=== PATIENT | female | born 1940 | race Caucasian/White ===

== ENCOUNTER → 2016-07-06 | Outpatient (CLI) | payer MEDICARE | LOC: RAD 09:00 | PROVIDERS: ATTEND Family Medicine | DX: R10.2 Pelvic and perineal pain (principal) | CPT/HCPCS: 76856 ==

== ENCOUNTER → 2016-07-22 | Outpatient (CLI) | payer MEDICARE ==
[2016-07-22 12:11] VITALS: BP 114/62
== END ==
LOC: MHUC 10:38
PROVIDERS: ATTEND Physician Assistant
DX: F41.9 Anxiety disorder, unspecified (principal); F32.9 Major depressive disorder, single episode, unspecified
CPT/HCPCS: 99214

== ENCOUNTER → 2016-07-22 | Outpatient (CLI) | payer MEDICARE ==
[2016-07-22 11:28] LABS: BASOPHILS % (AUTO) 1 % (0-2); EOSINOPHILS # (AUTO) 0.1 10^3uL; EOSINOPHILS % (AUTO) 1 % (0-4); LYMPHOCYTES # (AUTO) 1.8 X10^3; MEAN CORPUSCULAR HEMOGLOBIN 31.6 PG (26.0-34.0); MEAN CORPUSCULAR HGB CONC 35.6 g/dL (31.0-37.0); MEAN CORPUSCULAR VOLUME 89 FL (80-100); MEAN PLATELET VOLUME 9.7 FL (6.0-9.5); MONOCYTES # (AUTO) 1.2 X10^3; MONOCYTES % (AUTO) 11 % (3-11); NEUTROPHILS # (AUTO) 7.1 X10^3; NEUTROPHILS % (AUTO) 70 % (51-67); PLATELET COUNT 266 10^3uL (150-450); WHITE BLOOD COUNT 10.23 10^3uL (4.0-11.0)
[2016-07-22 11:38] LABS: ALBUMIN 4.7 g/dL (3.4-5.0); ANION GAP 15.6 MEQ/L (3-15); CALCULATED IONIZED CALCIUM 4.5 mg/dL (3.8-4.6); TOTAL PROTEIN 7.7 g/dL (6.4-8.5)
== END ==
LOC: LAB 11:13
PROVIDERS: ATTEND Physician Assistant
DX: R53.81 Other malaise (principal)
CPT/HCPCS: 36415; 80053; 85025; 87486; 87581; 87633; 87798

== ENCOUNTER 2016-08-25 13:00 | Outpatient (RCR) | payer MEDICARE ==
--- NOTE | 2016-08-09 13:10 | PT/OT/ST INITIAL EVALUATION ---
Department of Health and Human Services Form Approved [facility] Care Financing Administration OMB No. [id number] PLAN OF CARE/ASSESSMENT FOR OUTPATIENT REHABILITATION (Complete for Initial Claims Only) 1. PATIENT'S NAME Jessica Keating 2. ACC # [id number] 3. [facility] [id number] 4. PROVIDER NO. [id number] 5. TYPE: PT 6. PRIOR HOSPITALIZATION NA 7. PRIMARY DX Trapezius myalgias and thoracic paraspinal myalgias 8. SECONDARY DX NA 9. ONSET DATE Several years ago 10. REFERRAL DATE 07/25/2016 11. SOC. DATE 07/31/2016 12. TIME OF EVAL 9:36 12. REFERRING PHYSICIAN GREGORY Miranda with Kobi Gibson MD 13. CHARGES/UNITS Evaluation 01109 Exercise 33748, 1 unit Manual therapy 83547, 1 unit 14. G CODES [id number] Goal [id number] 15. PRIOR LEVEL OF FUNCTION; PERTINENT HISTORY (Prior therapy results, reason for referral.) S: Prior to the evaluation the patient consented to today's evaluation and treatment. The patient is a 76-year-old female referred by Melva Steven with her primary care physician being Dr. Miguel Angel Gibson to address trapezius and thoracic paraspinal myalgias. The patient notes a several year history of mid back and neck pain and reports a recent exacerbation a few weeks ago secondary to an increase in personal stressors. The patient also notes low back pain, however, at this time the upper trapezius and mid back pain are the greatest. Pain level: The patient's current pain level is 8/10 when the pain is flared up. It is described as not constant, but variable in intensity. She denies any numbness or tingling. Aggravating factors: The pain is aggravated by leaning forward, stress, and cold temperatures. Relieving factors: The pain is relieved by going to the chiropractor and utilization of taping strategies. 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 She is active around her home when not limited by pain. The patient is retired, but does like to stay active per her report. Current level of function: The patient is still able to complete daily tasks, but does have increased pain with these activities. She also has been experiencing an increase in dizziness. The patient also finds it uncomfortable to stay in one position for long periods of time secondary to pain. Therapy History: The patient has not had any recent physical therapy for this issue. Diagnostic testing: No recent diagnostic imaging has been performed. Past medical history: The patient has a history of arthritis, hypertension, chronic kidney disease and she is now on dialysis at this time, as well as bilateral rotator cuff repair, right knee total arthroplasty, cold intolerance and depression, which she relates to stress. The patient has undergone an EKG, which showed some possible dysfunction related to her heart and will see a manager car on 08/08/2016 for this issue. The patient also notes having an infection in one of her dental implants and will be undergoing surgery on 08/14/2016 to address this issue. 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 Personal health rating: Good. Activity level: The patient did not rate her activity level at this time. Patient's Goal: The patient's goal is to get better. 16. INITIAL ASSESSMENT/SAFETY PRECAUTIONS/MEDICAL COMPLICATIONS (Level of function at start of care. Be specific, use objective measures, list problems.) O: APPEARANCE AND OBSERVATION: Observation of the patent's posture reveals forward head positioning, bilateral scapular winging and increased cervical lordosis. She also demonstrates rounded shoulder positioning. PALPATION: The patient has tenderness and tightness to palpation at the cervical, thoracic, and lumbar paraspinals. She also has decreased movement with assessment of flexion palpating the spinous processes in the thoracic spine. SPECIAL TESTS: The patient scored a 9/50 on the modified Oswestry pain index. RANGE OF MOTION/FLEXIBILITY: The patient has poor segmentation in the thoracic and lumbar spine with trunk flexion. Cervical flexion is normal; however, she feels a pulling sensation. Right cervical rotation is limited 25% in comparison to the left. Bilateral cervical side bending is limited by 25% with shoulder hiking noted with completion of this task. The patient has a 50% limitation in lumbar side bending. STRENGTH: Right shoulder flexion 4/5, left 4/5. Shoulder abduction 3+/5 bilaterally. Shoulder internal and external rotation 4+/5 bilaterally. Hip flexion and abduction 3+/5 bilaterally. Knee flexion and extension 5/5 bilaterally. Ankle dorsiflexion 4/5 bilaterally. TODAY'S TREATMENT: Today's treatment consisted of educating the patient on the findings of the evaluation and recommended treatment plan. The physical therapist did initiate range of motion and stretching exercises to begin addressing tightness and muscle weakness in the parascapular region. Manual therapy was also completed including deep tissue mobilizations, soft tissue mobilization and muscle bending to the bilateral upper trapezii and upper thoracic paraspinals. The patient was provided a written home exercise program. 17. INITIAL POC: (Specify procedures, modalities, short and mcc goals) A: The patient presents to physical therapy with chronic neck and upper back pain with a recent exacerbation several weeks ago secondary increased and personal stressors. The patient has impaired upper extremity strength, decreased cervical range of motion, and poor movement patterns. PROGNOSIS: The patient does have a good outcome in physical therapy with regular therapy attendance and compliance with home exercise program, as well as utilization of relaxation strategies. OUTCOME ASSESSMENT: The patient scores a 9/50 on the modified Oswestry Pain Index with G-code being [id number]. INFORMED CONSENT: The diagnosis, prognosis, treatment plan, risks and expected outcomes were discussed with the patient and she is agreeable to today's established plan of care. SHORT TERM GOALS X2 WEEKS: 1. The patient will be independent and compliant with home exercise program. 2. The patient will regain cervical spine rotation to be a minimum of 65 degrees bilaterally and cervical side bending to be 30 degrees bilaterally. 3. The patient will have pain no greater than 4/10 with flare ups in a 1 week time. 4. The patient will be compliant with implementation of relaxation strategies a minimum of 3 times a week. MCC GOALS X4 WEEKS: 1. The patient will regain bilateral upper extremity strength to be 5/5 in flexion, abduction, and internal and external rotation. 2. The patient will report pain no greater than a 3/10 with all functional tasks. 3. The patient will demonstrate proper scapular stabilization with lifting up to 15 pounds in order to complete daily tasks with less strain and pain. 4. The patient will have a 10% improvement in her modified Oswestry pain index disability rating. P: Plan to see this patient 3 times a week for 4 weeks in order to address impaired cervical region motion, muscle tightness in the cervical spine and thoracic paraspinal region, and impaired movement patterns including weakness in the upper extremities bilaterally. The therapeutic interventions will include modalities as needed to address pain and muscle tightness. Manual therapy techniques will be utilized to improve mobility throughout the cervical and thoracic spine, as well as muscle mobility. Therapeutic exercise with emphasis on regaining pain free range of motion with progressive strengthening and postural re-education, neuromuscular reeducation will be utilized, as well as functional training to prevent further injury. The patient was provided a written home exercise program and this will be progressed as needed. Thank you for the referral of this patient. 18. FREQUENCY 3 times a week 19. DURATION 4 weeks 20. FUNCTIONAL LEVEL (End of claim period) 21. PHYSICIAN SIGNATURE ? ON FILE OR ENTER HERE: 22. DATE: I certify the need for these services furnished under this plan of care and if for partial hospitalization. 23. CERTIFICATION FROM THROUGH [facility]-700
--- NOTE | 2016-08-11 11:31 | PT/OT/ST INITIAL EVALUATION ---
Department of Health and Human Services Form Approved [facility] Care Financing Administration OMB No. [id number] PLAN OF CARE/ASSESSMENT FOR OUTPATIENT REHABILITATION (Complete for Initial Claims Only) 1. PATIENT'S NAME Jessica Keating 2. ACC # [id number] [id number] 4. PROVIDER NO. [id number] 5. TYPE: PT 6. PRIOR HOSPITALIZATION NA 7. PRIMARY DX Low back pain 8. SECONDARY DX NA 9. ONSET DATE Several weeks ago 10. REFERRAL DATE 08/03/2016 11. SOC. DATE 08/09/2016 12. TIME OF EVAL 13:[address] Miguel Angel Gibson 13. CHARGES/UNITS Re-evaluation code 41941 Manual therapy 36735, 1 unit Therapeutic exercise 62868 14. G CODES [id number] Goal G code remains the same [id number] 15. PRIOR LEVEL OF FUNCTION; PERTINENT HISTORY (Prior therapy results, reason for referral.) S: The patient has consented to physical therapy as she is currently being seen for trapezius and thoracic paraspinal myalgias and did consent to evaluation and treatment that time. She is agreeable to evaluation of her low back pain as well. Primary Complaint: The patient reports she has been experiencing low back pain for quite some time with a recent exacerbation several weeks ago. The pain is greatest in the lowest part of her low back and is not isolated to one side. The patient does note a history of a bulging disk at L5 and has had epidurals in the low back with some relief; however, none have been completed recently. The patient denies any numbness or tingling into her lower extremities. Current level of function: The patient has limited standing tolerance secondary to her increased low back pain. Pain Level: The patient is rated as a 0/10 at rest. Maximum pain level is a 10 to 10 with standing activities. Relieving factors: The pain is relieved when sitting or when taking Tylenol. Past medical history: Past medical history can be obtained from the evaluation related to her trapezius and thoracic paraspinal myalgia pain. Current medications: Medications remain unchanged. Patient's Goal: The patient's goal for physical therapy is to have a decrease in her low back pain and improve standing tolerance. 16. INITIAL ASSESSMENT/SAFETY PRECAUTIONS/MEDICAL COMPLICATIONS (Level of function at start of care. Be specific, use objective measures, list problems.) O: APPEARANCE AND OBSERVATION: Observation of the patient's posture reveals decreased lumbar lordosis. The right iliac crest is superior to the left. She has no limitations in lumbar flexion, extension, and side bending. PALPATION: Tenderness to palpation along the bilateral lumbar paraspinals into the low thoracic paraspinals. MOBILITY: The patient has hypomobility throughout the L1 through L5 segments. SPECIAL TESTS: Negative straight leg raise test or slump test for nerve tension or recreation of back pain. Assessment of the lower extremities in the long sitting test, the left lower extremity moves from short to long. Negative lumbar shear test for increased instability. STRENGTH: Right hip flexion 3+/5, left 4/5. Knee flexion 4/5 bilaterally. Knee extension 4+/5 bilaterally. Right ankle dorsiflexion 4+/5, left 5/5. Right hip abduction was not assessed this date. Hip extension is 3+/5 bilaterally. TODAY'S TREATMENT: Today's treatment consisted of initiating manual therapy techniques to improve flexibility and mobility in the bilateral lumbar paraspinals and joint mobilizations to the low back to improve mobility and decrease pain. The therapist also initiated the patient on a home exercise program to address her low back pain and muscle imbalance including bridges, lower trunk rotation, and lower extremity stretching. The patient tolerated treatment well without any significant increase in pain. 17. INITIAL POC: (Specify procedures, modalities, short and manager terminal goals) A: The patient presents to physical therapy with chronic low back pain with a recent exacerbation several weeks ago. The patient does have severe low back pain at times with standing activities and has impaired hip strength, as well as hamstring strength bilaterally. The patient also has decreased mobility throughout the lumbar spine. PROGNOSIS: The patient does have a good outcome in physical therapy as she has responded well to physical therapy treatment for her upper back related issues and has demonstrated good compliance so far, which the physical therapist hopes continues. FUNCTIONAL ASSESSMENT: The patient scores 12 out of 50 on the Modified Oswestry low back pain questionnaire. INFORMED CONSENT: The diagnosis, prognosis, treatment plan, risks and expected outcomes were discussed with this patient and she is agreeable to today's established plan of care. SHORT TERM GOALS X2 WEEKS: 1. The patient will report independence and compliance with home exercise program related to this issue. 2. The patient will demonstrate normalized mobility in the L1 through 5 segments to decrease pain and improve movement pattern with lumbar flexion. 3. The patient will demonstrate proper transverse abdominis isometric with completion of therapy activities 50% of the time without verbal cues. INTERMEDIATE GOALS X4 WEEKS: 1. The patient will report maximum pain level as no greater than 5/10 with prolonged standing activities. 2. The patient will improve bilateral hip extension and hip abduction strength to be 4/5, right hip flexion, bilateral knee flexion and extension strength will be improved to 5/5. 3. The patient will have a 10% improvement in her low back disability index as she is currently scoring a 12/50. 4. The patient will demonstrate proper body mechanics with daily tasks including light lifting activities in order to prevent further injury to the low back. P: Plan to see this patient 3 times a week for 4 weeks in order to address low back pain, impaired lower extremity strength and hypomobility throughout the lumbar spine. Manual therapy techniques will be utilized to improve mobility, muscle flexibility, and decreased pain. Modalities may be used as needed, therapeutic exercise will emphasize in improving trunk stabilization and improving lower extremity strength. Functional training and neuromuscular reeducation will be utilized as well. The patient was provided with a home exercise program and this will be progressed as the patient tolerates. Thank you for the referral of this patient. 18. FREQUENCY 3 times per week 19. DURATION 4 weeks 20. FUNCTIONAL LEVEL (End of claim period) 21. PHYSICIAN SIGNATURE ? ON FILE OR ENTER HERE: 22. DATE: I certify the need for these services furnished under this plan of care and if for partial hospitalization. 23. CERTIFICATION FROM THROUGH [facility]-700
== END 2016-09-12 12:58 | disposition home or self-care (01) ==
LOC: PT 13:00
PROVIDERS: ATTEND Physician Assistant Medical
DX: M79.1 Myalgia (principal)
CPT/HCPCS: 97110; 97140; 97162; 97164; 97530; G8981; G8982; G8983